=== PATIENT | male | born 1935 | race Two or more races ===

== ENCOUNTER 2018-01-18 08:39 | Outpatient (CLI) | payer OTHER | END 2018-01-18 08:45 | disposition home or self-care (01) | LOC: SONOGRAMA 08:39 | DX: E04.1 Nontoxic single thyroid nodule (principal) ==

== ENCOUNTER 2020-07-17 09:25 | Outpatient (CLI) | payer OTHER | END 2020-07-17 09:39 | disposition home or self-care (01) | LOC: RX STUDY 09:25 | PROVIDERS: ATTEND Otolaryngology Plastic Surgery within the Head & Neck | DX: R13.19 Other dysphagia (principal) ==